=== PATIENT | female | born 1980 | race Caucasian/White ===

== ENCOUNTER 2022-05-11 15:40 | Emergency (ER) | payer BC, SELFPAY ==
[2022-05-11] MEDS ORDERED: Dexamethasone 10 MG/ML VIAL ONE (16:16)
[2022-05-11] MEDS ORDERED: Ibuprofen 200 MG TAB ONE (16:25)
[2022-05-11] MEDS ORDERED: Acetaminophen 500 MG TAB ONE (16:25)
[2022-05-11] MEDS ORDERED: Bicillin LA 1.2 MILLION UNITS/2 ML SYRINGE IM SCH (16:30)
== END 2022-05-11 16:59 | disposition home or self-care (01) ==
LOC: CSHERS 15:40
DX: J02.0 Streptococcal pharyngitis (principal)
CPT/HCPCS: 96372; 99283; J0561; J1100